=== PATIENT | male | born 1960 | race African-American/Black ===

== ENCOUNTER 2017-12-28 06:09 | Day surgery (SDC) | payer OTHER ==
[~2017-12-28] VITALS: Ht 163.8 cm; Wt 73.5 kg
--- NOTE | ~2017-12-28 | OP ---
PATIENT NAME: CARLA POLLARD MEDICAL RECORD: [id number] :64 LOCATION:D.OPS ADMISSION DATE: SURGEON: ETHAN GODDARD MD DATE OF OPERATION: 12/28/2017 PREOPERATIVE DIAGNOSES: 1. Bleeding internal hemorrhoids. 2. Third degree anal prolapse. 3. Intractably symptomatic external hemorrhoids. 4. Perineal condyloma. POSTOPERATIVE DIAGNOSES: 1. Bleeding internal hemorrhoids. 2. Third degree anal prolapse. 3. Intractably symptomatic external hemorrhoids. 4. Perineal condyloma. PROCEDURE: 1. Procedure for prolapse and hemorrhoids. 2. Biopsy and fulguration of perineal condyloma. SURGEON: Ethan Goddard MD CROZE CUTTER: None. BLOOD LOSS: Minimal. ANESTHESIA: General. COMPLICATIONS: None. The risks, possible complications, and alternatives to the procedure were explained to the patient. He elects to proceed. The discussion specifically included, but was not limited to, bleeding requiring an emergency reoperation, the probability that he would have bleeding with every bowel movement for the next 3 weeks. Possibility of sphincteric incompetence or anal stenosis. The possibility of regrowth of condyloma. The possibility of recurrence of hemorrhoidal difficulties. He elects to proceed. OPERATIVE COURSE: The patient was conveyed to the operating room electively on 12/28/2017. General anesthesia was induced by the anesthesia staff. The patient was placed in the lithotomy position. The buttocks were taped laterally. The anus and perianal areas were sterilely prepped and draped. The anus was dilated laterally to 3 fingers. A PPH retractor was placed. The retractor was sutured to the surrounding anoderm with 2-0 silk sutures. A 2-0 Prolene mucosal pursestring suture was applied 1 cm cephalad to the clear retractor. The PPH stapling device was advanced with the anvil cephalad to the pursestring suture, which was then tightened and tied. The stapling device was engaged. It was held in place for 2 minutes. It was then fired. It was removed under direct vision. There was an entire donut of hemorrhoidal and lower rectal mucosal tissue within the stapling device. Bleeding along the anastomotic staple line was controlled with [id number] 3-0 Vicryls. A OPERATIVE REPORT [id number] CARLA POLLARD combination of Marcaine and a steroid preparation was used to infiltrate the perianal tissues. Gelfoam was applied within anus and lower rectum. A topical anesthetic cream was applied to the external hemorrhoids. With a vacuum in place and special masks, I then performed an excisional biopsy of the condyloma. I then ablated the base through fulguration. The patient was then extubated and conveyed to the post-anesthesia care unit. He will be dismissed home on Colace as well as Valium, which is a good anal muscle relaxant and helps prevent anal spasms as well as a narcotic analgesic. There is no need for the patient to follow up with me in the office unless he develops a complication related to this operative procedure. TRANSINT:[id number] Voice Confirmation ID: [id number] DOCUMENT ID: [id number] ETHAN GODDARD MD at 1717 CC: [id number] DICTATION DATE: 12/28/17 1104 FLORAL MERCHANDISER: 12/28/17 1134 [facility] 12/28/17 [id number] [place] [address]
[2017-12-28 07:14] LABS: HEMOGLOBIN 12.5 g/dL (13.5-17.5); MCH 28.1 pg (26.0-34.0); MCHC 32.9 g/dL (31.0-37.0); MCV 85.4 fL (80.0-100.0); MEAN PLATELET VOLUME 9.9 fL (7.4-10.4); RBC 4.45 10x6/uL (4.20-6.10); RDW 15.4 % (11.5-14.5); WBC 3.8 10x3/uL (4.8-10.8)
[2017-12-28] MEDS ORDERED: PHENOBARBITAL32.4 MG PO (07:20)
[2017-12-28] MEDS ORDERED: NAPROSYN500 MG PO (07:21)
[2017-12-28] MEDS ORDERED: HYDROCHLOROTHIA25 MG PO (07:22)
[2017-12-28] MEDS ORDERED: ZYRTEC10 MG PO (07:22)
[2017-12-28] MEDS ORDERED: ZESTRIL40 MG PO (07:23)
[2017-12-28] MEDS ORDERED: HEMORRHOIDAL OI57 GM (07:24)
[2017-12-28] MEDS ORDERED: METOPROLOL TAR100 M1 PO (07:24)
[2017-12-28] MEDS ORDERED: DILANTIN100 MG PO (07:26)
[2017-12-28] MEDS ORDERED: ZOLOFT100 MG PO (07:27)
[2017-12-28] MEDS ORDERED: SCOT-TUSSI10 MG/5 ML (07:27)
[2017-12-28 07:35] VITALS: BP 154/94; Ht 163.8 cm; Wt 73.5 kg
== END 2017-12-28 15:00 | disposition home or self-care (01) ==
LOC: D.OPS 06:09
PROVIDERS: Anesthesiology
DX: K64.2 Third degree hemorrhoids (principal); K64.4 Residual hemorrhoidal skin tags; A63.0 Anogenital (venereal) warts; Z01.812 Encounter for preprocedural laboratory examination